=== PATIENT | female | born 2000 | race Caucasian/White ===

== ENCOUNTER 2020-11-12 15:25 | Emergency (ER) | payer OTHER, SELFPAY ==
--- NOTE | 2020-11-12 17:10 | HMH.EDUTC ---
[facility] [place] Clinical Impression: Exposure to COVID-19 virus, Viral syndrome Disposition: Home, Self-Care Condition on Discharge: Good Instructions: DI for COVID-19 (Suspected or Confirmed ), Preventing the Spread of Coronavirus Discharge Instructions Additional Instructions: Drink plenty of fluids. Take tylenol for pain or fever. Return if you begin to have difficulty breathing. Follow up with your regular doctor. GO TO THE ER FOR ANY WORSENING SYMPTOMS Quarantine until you know the results of your covid-19 test. If it is positive, the health department should call you and give you further instructions about your length of Quarantine and other things. Notify your school or workplace of your results and follow their instructions regarding return to work/school. Prescriptions: Brompheniramine/Pseudoephed/Dm [Bromfed Dm Cough Syrup] 5 ml PO Q6HP PRN #240 ml PRN Reason: Cough Transmission Status: Received by [id number] Ondansetron [Zofran 4mg ODT] 4 mg PO Q8HP PRN #12 tab PRN Reason: Nausea Transmission Status: Received by [id number] Referrals: Niharika Page [Primary Care Provider] - Forms: Work/School Release Time of Disposition: 17:11 Medical Decision Making - Medical Records Medical records reviewed: No: I reviewed the patient's medical records. - Manpreet Inquiry Pt receiving controlled substance: No Vital Signs: 11/12/20 17:19 11/12/20 17:24 Temperature 98.6 F 98.6 F Temperature Source Oral Pulse Rate 94 H Pulse Rate [Left] 94 H Respiratory Rate 14 14 Blood Pressure 102/54 L Blood Pressure [Right Arm] 102/54 L Blood Pressure Mean [Right Arm] 70 02 Sat by Pulse Oximetry 99 [facility] [place] - General Stated complaint: covid test Time Seen by Provider: 11/12/20 17:28 - History of Present Illness Provider Complaint: She has been having nasal drainage, cough and feeling bad since yesterday. She thinks that she was exposed to covid earlier this week. - Related Data Home Medications Medication Instructions Recorded Confirmed ergocalciferol (vitamin D2) 1,250 1,250 mcg PO cap 09/23/20 09/23/20 mcg (50,000 unit) capsule prenat.vits,no,[id number] 1 tab PO DAILY 09/23/20 09/23/20 Previous Rx's Medication Instructions Recorded Brompheniramine/Pseudoephed/Dm 5 ml PO Q6HP PRN #240 ml 11/12/20 [Bromfed Dm Cough Syrup] Ondansetron [Zofran 4mg ODT] 4 mg PO Q8HP PRN #12 tab 11/12/20 Allergies Allergy/AdvReac Type Severity Reaction Status Date / Time No Known Allergies Allergy Verified 09/23/20 16:[address] [facility] History - Hepatitis A Screen Attestation statement:: This patient has been screened for Hepatitis A risk factors. I have reviewed the patient's past medical history: Yes Other Medical History: Reports: Other Comment: IBS Laterality Cases: Bilateral: Tonsillectomy Other Surgeries: Yes: Other Amputation: No Fractures: No Comment: Lipoma removed from back - Social History Smoking Status: Never smoker Alcohol Intake: never Alcohol Intake Frequency:: other Occupational Status: employed Family Hx:: No significant family history [employer] history: Endometriosis ROS Obtained: Yes All systems reviewed & no additional complaints - Constitutional Constitutional: Reports system reviewed and no additional complaints, except as docu - Eyes Eyes: Reports system reviewed and no additional complaints, except as docu - ENT Ears, Nose, Mouth, and Throat: Reports system reviewed and no additional complaints, except as docu - Cardiovascular Cardiovascular: Reports system reviewed and no additional complaints, except as docu - Respiratory Respiratory: Reports system reviewed and no additional complaints, except as docu - Gastrointestinal Gastrointestingal: Reports: system reviewed and no additional complaints, except as docu Physical Exam - General General appearance: alert, in no apparent distress - Head
[2020-11-12 17:19] VITALS: BP 102/54; PULSE 94; RESP 14; TEMP 37; O2SAT 99; BMI 52.0
[2020-11-12 17:24] VITALS: BP 102/54; PULSE 94; RESP 14; TEMP 37
--- NOTE | 2020-11-13 09:59 | PC.NURSE ---
notified pt of positive covid test result
== END 2020-11-12 17:34 | disposition home or self-care (01) ==
PROVIDERS: Emergency Provider Nurse Practitioner Family; PCP Family Medicine
DX: U07.1 COVID-19 (principal)
CPT/HCPCS: 99202; G0463; U0003